=== PATIENT | female | born 1985 | race Caucasian/White ===

== ENCOUNTER 2018-01-19 05:10 | Inpatient (IN) | payer BC, SELFPAY ==
[~2018-01-19 05:10] MED LIST: Citric Acid/Sodium Citrate Solution 30 ML Cup PO ONE; Metoclopramide 10 MG/2 ML SDV IVPUSH ONE; Sodium Chloride 0.9% 10 ML Syringe FLUSH PRN; ceFAZolin 1 GM in Premix Bag 1 BAG IV ONE; ceFAZolin 2 GM in Premix Bag 1 BAG IV ONE
[2018-01-19] MEDS: Lactated Ringers 1,000 ML IV SCH ×2 (06:20→07:10)
[2018-01-19] MEDS ORDERED: Morphine PF 10 MG/10 ML SDV ONE (07:14)
[2018-01-19] MEDS ORDERED: Lactated Ringers 2,000 ML ONE (07:14)
[2018-01-19] MEDS ORDERED: Oxytocin 10 Units/1 ML SDV ONE (07:14)
[2018-01-19] MEDS ORDERED: Ondansetron 4 MG/2 ML SDV ONE (07:14)
[2018-01-19] MEDS ORDERED: Ketorolac 30 MG/ML SDV ONE (07:14)
[2018-01-19] MEDS ORDERED: ceFAZolin 1 GM Vial ONE ×2 (07:14)
--- NOTE | 2018-01-19 07:16 | PCM.OPNOTE ---
- General Post-Op/Procedure Note Date of Surgery/Procedure: 01/19/18 Operative Procedure(s): Repeat low transverse Findings: Minimal amount of scar tissue between the rectus and the fascia. Minimal scar tissue between the uterus and bladder. Baby boy in a footling breech presentation. Weight of 9 lbs 0 oz and APGARS of 8 & 9. Uterus exterorized. 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 Fallopian tubes and ovaries otherwise normal. Pre Op Diagnosis: 39 weeks gestation. 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 Placenta discarded. Fluid Replacement, Intraop: 2,900 Output, Urine Amount: 150 EBL in mLs: 800 Complications: None Condition: Good Free Text/Narrative:: The risks, benefits, indications, potential complications, and alternatives were explained to the patient and informed consent obtained. After induction of anesthesia, the patient was placed in a supine position and then draped and prepped in the usual sterile manner. A Pfannenstiel incision was made and carried down through the subcutaneous tissue to the fascia. Fascial incision was made and extended transversely. The fascia was from the underlying rectus tissue superiorly and inferiorly. The peritoneum was identified and entered. Peritoneal incision was extended longitudinally. The utero-vesical peritoneal reflection was incised transversely and the bladder flap was bluntly freed from the lower uterine segment. A low transverse uterine incision was made sharply with a scalpel and extended bluntly in a cephalocaudad direction. A baby boy was delivered from a footling breech presentation with APGARS as above. After the umbilical cord was clamped and cut cord blood was obtained for evaluation. The placenta was removed intact and appeared normal. The uterus was exteriorized and cleared of clots. The uterus was examined more thoroughly this time and thought to be a partial bicornuate. Tubes and ovaries appeared normal. The uterine incision was closed with running locked sutures of 0 Vicryl. Hemostasis was obtained with a second imbricating layer of 0 vicryl. The uterus was then placed back into the abdomen. The infracolic gutters were cleared of blood clots. The fascia was then reapproximated with running sutures of 0 Vicryl. The sucutaneous tissue was irrigated with sterile warm normal saline, hemostasis obtained with cautery. This layer was also closed with a running 0 vicryl. The skin was reapproximated with running Subcuticular 4-0 monocryl sutures. Instrument, sponge, and needle counts were correct prior the abdominal closure and at the conclusion of the case.
--- NOTE | 2018-01-19 07:21 | PCM.PREANE ---
Preanesthetic Assessment - Anesthesia/Transfusion/Family Hx Anesthesia History: Prior Anesthesia Without Reaction Family History of Anesthesia Reaction: No Transfusion History: No Prior Transfusion(s) - Review of Systems General: No Symptoms Pulmonary: No Symptoms Cardiovascular: No Symptoms Gastrointestinal: No Symptoms Neurological: No Symptoms Other: Reports: Easy Bruising, Thyroid Problems (parathyroid removed), Depression, Anxiety - Physical Assessment O2 Sat by Pulse Oximetry: 95 Respiratory Rate: 16 Vital Signs: Last Vital Signs Temp 98.0 F 01/19/18 06:00 Pulse 106 H 01/19/18 06:00 Resp 16 01/19/18 06:00 BP 119/71 01/19/18 06:00 Pulse Ox 95 01/19/18 06:00 Height: 5 ft 4 in Weight: 126.099 kg ASA Class: 2 Mental Status: Alert & Oriented x3 Airway Class: Mallampati = 1 Dentition: Reports: Normal Dentition Thyro-Mental Finger Breadths: 3 Mouth Opening Finger Breadths: 3 ROM/Head Extension: Full Lungs: Clear to Auscultation, Normal Respiratory Effort Cardiovascular: Regular Rate, Regular Rhythm - Lab Values: Laboratory Last Values WBC 12.49 K/mm3 (3.98-10.04) H 01/19/18 06:50 RBC 3.92 M/mm3 (3.98-5.22) L 01/19/18 06:50 Hgb 12.6 gm/L (11.2-15.7) 01/19/18 06:50 Hct 37.4 % (34.1-44.9) 01/19/18 06:50 MCV 95.4 fl (79.4-94.8) H 01/19/18 06:50 MCH 32.1 pg (25.6-32.2) 01/19/18 06:50 MCHC 33.7 g/dl (32.2-35.5) 01/19/18 06:50 RDW Std Deviation 44.1 fL (36.4-46.3) 01/19/18 06:50 Plt Count 162 K/mm3 (182-369) L 01/19/18 06:50 MPV 11.4 fl (9.4-12.3) 01/19/18 06:50 Neut % (Auto) 74.8 % (34.0-71.1) H 01/19/18 06:50 Lymph % (Auto) 15.0 % (19.3-51.7) L 01/19/18 06:50 Lawrence % (Auto) 8.6 % (4.7-12.5) 01/19/18 06:50 Eos % (Auto) 0.9 (0.7-5.8) 01/19/18 06:50 Baso % (Auto) 0.1 % (0.1-1.2) 01/19/18 06:50 Neut # (Auto) 9.36 K/mm3 (1.56-6.13) H 01/19/18 06:50 Lymph # (Auto) 1.87 K/mm3 (1.18-3.74) 01/19/18 06:50 Lawrence # (Auto) 1.07 K/mm3 (0.24-0.36) H 01/19/18 06:50 Eos # (Auto) 0.11 K/mm3 (0.04-0.36) 01/19/18 06:50 Baso # (Auto) 0.01 K/mm3 (0.01-0.08) 01/19/18 06:50 - Allergies Allergies/Adverse Reactions: Allergies Allergy/AdvReac Type Severity Reaction Status Date / Time amoxicillin Allergy Hives Verified 01/19/18 05:22 minocycline Allergy Hives Verified 01/19/18 05:22 - Blood Blood Available: No - Acknowledgements Anesthesia Type Planned: Spinal Pt an Appropriate Candidate for the Planned Anesthesia: Yes Alternatives and Risks of Anesthesia Discussed w Pt/Guardian: Yes Pt/Guardian Understands and Agrees with Anesthesia Plan: Yes PreAnesthesia Questionnaire - Past Health History Medical/Surgical History: Denies Medical/Surgical History Other Cardiovascular History: Increase blood pressure with previous Gastrointestinal History: Reports: GERD (with preg) 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: , Spontaneous : 3 (39 weeks) Para: 1 Other OB/BYN History: Abnormal pap but states results came back at cervical inflamation Psychiatric History: Reports: Depression Other Psychiatric History: Depression after her father 12 years ago Endocrine/Metabolic History: Reports: Hyperparathyroidism, Obesity/BMI 30+ Oncologic (Cancer) History: Reports: None - Past Surgical History HEENT Surgical History: Reports: Oral Surgery Other HEENT Surgeries/Procedures: [place] teeth Female Surgical History: Reports: Section Endocrine Surgical History: Reports: Parathyroidectomy Other Endocrine Surgeries/Procedures: Hyperparathyroidism fixed with parathyroidectomy - SUBSTANCE USE Smoking Status *Q: Never Smoker Tobacco Use Within Last Twelve Months: No Second Hand Smoke Exposure: No Days Per Week of Alcohol Use: 0 Recreational Drug Use History: No - HOME MEDS Home Medications: Home Meds Vit W-Ca,Fe,FA(<1 mg) [ Vitamins] 1 each PO DAILY 01/16/16 [ History] Ranitidine [Zantac] 150 mg PO DAILY 01/23/16 [History] Acetaminophen/oxyCODONE [Percocet 325-5 MG] 1 - 2 tab PO Q4H PRN #45 tablet 02/05 [Rx] - CURRENT (IN HOUSE) MEDS Current Meds: Current Medications Lactated Ringer's (Ringers, Lactated) 1,000 mls @ 125 mls/hr IV ASDIRECTED [facility] Last Admin: 01/19/18 07:10 Dose: 125 mls/hr Oxytocin/Lactated Ringer's (Pitocin In Lr 10 Units/1,000 Ml) 10 unit in 1,000 mls @ 100 mls/hr IV ASDIRECTED [facility] Sodium Chloride (Saline Flush) 10 ml FLUSH ASDIRECTED PRN PRN Reason: Keep Vein Open Discontinued Medications Cefazolin Sodium (Ancef) Confirm Administered Dose 2 gm .ROUTE .STK-MED ONE Stop: 01/19/18 07:15 Cefazolin Sodium (Ancef) Confirm Administered Dose 1 gm .ROUTE .STK-MED ONE Stop: 01/19/18 07:15 Citric Acid/Sodium Citrate (Bicitra Solution) 30 ml PO ONETIME ONE Stop: 01/19/18 05:01 Last Admin: 01/19/18 07:13 Dose: 30 ml Cefazolin Sodium/Dextrose 2 gm (/ Premix) 50 mls @ 100 mls/hr IV ONETIME ONE Stop: 01/19/18 05:29 Cefazolin Sodium/Dextrose 1 gm (/ Premix) 50 mls @ 100 mls/hr IV ONETIME ONE Stop: 01/19/18 05:29 Lactated Ringer's (Ringers, Lactated) Confirm Administered Dose 2,000 mls @ as directed .ROUTE .STK-MED ONE Stop: 01/19/18 07:15 Ketorolac Tromethamine (Toradol) Confirm Administered Dose 30 mg .ROUTE .STK- MED ONE Stop: 01/19/18 07:15 Metoclopramide HCl (Reglan) 10 mg IVPUSH ONETIME ONE Stop: 01/19/18 05:01 Last Admin: 01/19/18 07:14 Dose: 10 mg Morphine Sulfate (Duramorph Pf) Confirm Administered Dose 10 mg .ROUTE .STK-MED ONE Stop: 01/19/18 07:15 Ondansetron HCl (Zofran) Confirm Administered Dose 4 mg .ROUTE .STK-MED ONE Stop: 01/19/18 07:15 Oxytocin (Pitocin) Confirm Administered Dose 10 unit .ROUTE .STK-MED ONE Stop: 01/19/18 07:15
[2018-01-19] MEDS ORDERED: Bupivacaine 0.75%/D5W 2 ML Amp ONE (07:53)
[2018-01-19] MEDS ORDERED: Oxytocin/Lactated Ringers 10 UNIT/1,000 ML BAG IV SCH (08:00)
[2018-01-19] MEDS ORDERED: ePHEDrine 50 MG/ML SDV ONE (08:09)
[2018-01-19] MEDS ORDERED: fentaNYL 100 MCG/2 ML SDV IVPUSH PRN (08:16)
[2018-01-19] MEDS ORDERED: Meperidine PF 50 MG/ML Syringe IVPUSH PRN (08:16)
[2018-01-19] MEDS ORDERED: diphenhydrAMINE 50 MG/ML SDV IVPUSH PRN (08:16)
[2018-01-19] MEDS ORDERED: Ondansetron 4 MG/2 ML SDV IVPUSH PRN (08:16)
--- NOTE | 2018-01-19 08:56 | PCM.POSTAN ---
POST ANESTHESIA ASSESSMENT - MENTAL STATUS Mental Status: Alert, Oriented - VITAL SIGNS Pulse Rate: 110 SaO2: 99 Resp Rate: 12 Blood Pressure: 110/66 Temperature: 98.3 F - RESPIRATORY Respiratory Status: Respiratory Rate WNL, Airway Patent, O2 Saturation Stable, Supplemental Oxygen - CARDIOVASCULAR CV Status: Pulse Rate WNL, Blood Pressure Stable - GASTROINTESTINAL GI Status: No Symptoms - PAIN Pain Score: 0 - POST OP HYDRATION Hydration Status: Adequate & Stable
[2018-01-19] MEDS ORDERED: Ondansetron 4 MG/2 ML SDV IV PRN (10:55)
[2018-01-19] MEDS ORDERED: Naloxone 0.4 MG/ML SDV IVPUSH PRN (10:55)
[2018-01-19] MEDS ORDERED: Lanolin 100% Cream 7 GM Tube TOP PRN (10:55)
[2018-01-19] MEDS ORDERED: Dextrose 5%-Lactated Ringers 1,000 ML IV SCH (10:55)
[2018-01-19] MEDS: Ketorolac 30 MG/ML SDV IVPUSH SCH ×2 (15:03→20:21)
[2018-01-20] MEDS: Ketorolac 30 MG/ML SDV IVPUSH SCH (02:37)
[2018-01-20] MEDS: Acetaminophen/oxyCODONE 325-5 MG Tab PO PRN ×3 (04:05→22:27)
--- NOTE | 2018-01-20 07:13 | PCM.PNPP ---
- General Info Date of Service: 01/20/18 Admission Dx/Problem (Free Text): POD 1 s/p uncomplicated RCS. 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 Hasn't voided yet Pain controlled. Functional Status: Reports: Pain Controlled - Review of Systems General: Reports: No Symptoms HEENT: Reports: No Symptoms Pulmonary: Reports: No Symptoms Cardiovascular: Reports: No Symptoms Gastrointestinal: Reports: No Symptoms Genitourinary: Reports: No Symptoms Musculoskeletal: Reports: No Symptoms Skin: Reports: No Symptoms Neurological: Reports: No Symptoms Psychiatric: Reports: No Symptoms - General Info Date of Service: 01/20/18 - Patient Data Vital Signs - Most Recent: Last Vital Signs Temp 36.6 C 01/20/18 04:11 Pulse 106 H 01/20/18 04:11 Resp 16 01/20/18 06:45 BP 131/77 01/20/18 04:11 Pulse Ox 97 01/20/18 06:45 Weight - Most Recent: 126.099 kg I&O - Last 24 Hours: Intake & Output 01/19/18 01/20/18 01/20/18 22:59 06:59 14:59 Intake Total 360 Output Total 1075 1550 Balance -715 -1550 Lab Results - Last 24 Hours: Laboratory Results - last 24 hr 01/19/18 01/20/18 Range/Units 06:50 05:58 WBC 12.64 H (3.98-10.04) K/mm3 RBC 3.41 L (3.98-5.22) M/mm3 Hgb 10.8 L (11.2-15.7) gm/L Hct 33.3 L (34.1-44.9) % MCV 97.7 H (79.4-94.8) fl MCH 31.7 (25.6-32.2) pg MCHC 32.4 (32.2-35.5) g/dl RDW Std Deviation 45.4 (36.4-46.3) fL Plt Count 153 L (182-369) K/mm3 MPV 11.6 (9.4-12.3) fl Blood Type A POSITIVE Gel Antibody Screen Negative Med Orders - Current: Current Medications Diphenhydramine HCl (Benadryl) 25 mg IVPUSH Q6H PRN PRN Reason: pruritis Docusate Sodium (Colace) 100 mg PO Q12H PRN PRN Reason: Constipation Emollient Ointment (Lansinoh Hpa) 0 gm TOP ASDIRECTED PRN PRN Reason: Sore Nipples Fentanyl (Sublimaze) 50 mcg IVPUSH Q5M PRN PRN Reason: Pain Ibuprofen (Motrin) 600 mg PO Q6H PRN PRN Reason: mild pain or fever Meperidine HCl (Demerol) 12.5 mg IVPUSH ONETIME PRN PRN Reason: shivering Naloxone HCl (Narcan) 0.1 mg IVPUSH SEECOMMENT PRN PRN Reason: Respiratory Depression Ondansetron HCl (Zofran) 4 mg IVPUSH ONETIME PRN PRN Reason: Nausea/Vomiting Ondansetron HCl (Zofran) 4 mg IV Q8H PRN PRN Reason: Nausea/Vomiting Oxycodone/Acetaminophen (Percocet 325-5 Mg) 2 tab PO Q4H PRN PRN Reason: Pain (moderate 4-6) Last Admin: 01/20/18 04:05 Dose: 2 tab Discontinued Medications Bupivacaine HCl/Dextrose (Marcaine 0.75% Spinal) Confirm Administered Dose 2 ml .ROUTE .STK-MED ONE Stop: 01/19/18 07:54 Cefazolin Sodium (Ancef) Confirm Administered Dose 2 gm .ROUTE .STK-MED ONE Stop: 01/19/18 07:15 Cefazolin Sodium (Ancef) Confirm Administered Dose 1 gm .ROUTE .STK-MED ONE Stop: 01/19/18 07:15 Citric Acid/Sodium Citrate (Bicitra Solution) 30 ml PO ONETIME ONE Stop: 01/19/18 05:01 Last Admin: 01/19/18 07:13 Dose: 30 ml Ephedrine Sulfate (Ephedrine Sulfate) Confirm Administered Dose 50 mg .ROUTE .STK-MED ONE Stop: 01/19/18 08:10 Cefazolin Sodium/Dextrose 2 gm (/ Premix) 50 mls @ 100 mls/hr IV ONETIME ONE Stop: 01/19/18 05:29 Last Admin: 01/19/18 14:56 Dose: Not Given Cefazolin Sodium/Dextrose 1 gm (/ Premix) 50 mls @ 100 mls/hr IV ONETIME ONE Stop: 01/19/18 05:29 Last Admin: 01/19/18 14:55 Dose: Not Given Lactated Ringer's (Ringers, Lactated) 1,000 mls @ 125 mls/hr IV ASDIRECTED [facility] Last Admin: 01/19/18 07:10 Dose: 125 mls/hr Oxytocin/Lactated Ringer's (Pitocin In Lr 10 Units/1,000 Ml) 10 unit in 1,000 mls @ 100 mls/hr IV ASDIRECTED [facility] Lactated Ringer's (Ringers, Lactated) Confirm Administered Dose 2,000 mls @ as directed .ROUTE .STK-MED ONE Stop: 01/19/18 07:15 Dextrose/Lactated Ringer's (Dextrose 5%-Lactated Ringers) 1,000 mls @ 125 mls/ hr IV ASDIRECTED [facility] Stop: 01/19/18 18:54 Last Admin: 01/19/18 13:27 Dose: 125 mls/hr Ketorolac Tromethamine (Toradol) Confirm Administered Dose 30 mg .ROUTE .STK- MED ONE Stop: 01/19/18 07:15 Ketorolac Tromethamine (Toradol) 30 mg IVPUSH Q6H [facility] Stop: 01/20/18 02:31 Last Admin: 01/20/18 02:37 Dose: 30 mg Metoclopramide HCl (Reglan) 10 mg IVPUSH ONETIME ONE Stop: 01/19/18 05:01 Last Admin: 01/19/18 07:14 Dose: 10 mg Morphine Sulfate (Duramorph Pf) Confirm Administered Dose 10 mg .ROUTE .STK-MED ONE Stop: 01/19/18 07:15 Ondansetron HCl (Zofran) Confirm Administered Dose 4 mg .ROUTE .STK-MED ONE Stop: 01/19/18 07:15 Oxytocin (Pitocin) Confirm Administered Dose 10 unit .ROUTE .STK-MED ONE Stop: 01/19/18 07:15 Sodium Chloride (Saline Flush) 10 ml FLUSH ASDIRECTED PRN PRN Reason: Keep Vein Open - Interaction Infant Disposition, : at Bedside Support Person: - Recovery Exam Fundal Tone: Firm Fundal Level: At Umbilicus Fundal Placement: Midline Lochia Amount: Scant, Small Lochia Color: Rubra/Red Perineum Description: Intact, Minimal Bruising/Swelling Episiotomy/Laceration: None Bladder Status: Indwelling Catheter in Place - Exam General: Alert, Oriented HEENT: Pupils Equal Neck: Supple Lungs: Clear to Auscultation, Normal Respiratory Effort Cardiovascular: Regular Rate, Regular Rhythm GI/Abdominal Exam: Normal Bowel Sounds, Soft, Non-Tender, No Organomegaly, No Distention, No Abnormal Bruit, No Mass, Pelvis Stable Extremities: Normal Inspection, Normal Range of Motion, Non-Tender, No Pedal Edema, Normal Capillary Refill Skin: Warm, Dry, Intact Wound/Incisions: Healing Well Neurological: No New Focal Deficit Psy/Mental Status: Alert, Normal Affect, Normal Mood - Problem List Review Problem List Initiated/Reviewed/Updated: Yes - Assessment Assessment:: POD1 Doing well Excellent UOP - Plan Plan:: Continue routine postop care.
--- NOTE | 2018-01-20 10:34 | PCM48HPAN ---
Post Anesthesia Note - EVALUATION WITHIN 48HRS OF ANESTHETIC Vital Signs in Normal Range: Yes Patient Participated in Evaluation: Yes Respiratory Function Stable: Yes Airway Patent: Yes Cardiovascular Function Stable: Yes Hydration Status Stable: Yes Pain Control Satisfactory: Yes Nausea and Vomiting Control Satisfactory: Yes Mental Status Recovered: Yes Pulse Rate: 106 Resp Rate: 16 Temperature: 36.6 C Blood Pressure: 131/77 - COMMENTS/OBSERVATIONS Free Text/Narrative:: no anesthesia complications noted
[2018-01-20] MEDS: Ibuprofen 600 MG Tab PO PRN (19:19)
[2018-01-20] MEDS: Docusate Sodium 100 MG Cap PO PRN (19:22)
[2018-01-21] MEDS ORDERED: Measles, Mumps & Rubella Vaccine 0.5 ML SDV SUBCUT ONE (03:33)
[2018-01-21] MEDS: Ibuprofen 600 MG Tab PO PRN (04:01)
[2018-01-21] MEDS: Docusate Sodium 100 MG Cap PO PRN (08:11)
[2018-01-21] MEDS: Acetaminophen/oxyCODONE 325-5 MG Tab PO PRN (08:11)
--- NOTE | 2018-01-21 09:54 | PCM.DCSUM1 ---
Discharge Summary - Hospital Course Brief History: Admitted for RCS. Unremarkable course - Discharge Data Discharge Date: 01/21/18 Discharge Disposition: Home, Self-Care 01 Condition: Good - Patient Summary/Data Operative Procedure(s) Performed: Repeat low transverse - Patient Instructions Diet: Usual Diet as Tolerated Activity: No Strenuous Activities Driving: May Drive Today Showering/Bathing: May Shower Wound/Incision Care: Keep Operative Site/Wound Site Clean and Dry Notify Provider of: Fever, Increased Pain, Swelling and Redness, Drainage, Nausea and/or Vomiting - Discharge Plan Home Medications: Home Meds Vit W-Ca,Fe,FA(<1 mg) [ Vitamins] 1 each PO DAILY 01/16/16 [ History] Ranitidine [Zantac] 150 mg PO DAILY 01/23/16 [History] Acetaminophen/oxyCODONE [Percocet 325-5 MG] 1 - 2 tab PO Q4H PRN #45 tablet 02/05 [Rx] Referrals: Nina Mcdonough MD [Primary Care Provider] - (2-3 weeks) - Discharge Summary/Plan Comment DC Time >30 min.: No - General Info Date of Service: 01/21/18 Functional Status: Reports: Pain Controlled - Review of Systems General: Reports: No Symptoms HEENT: Reports: No Symptoms Pulmonary: Reports: No Symptoms Cardiovascular: Reports: No Symptoms Gastrointestinal: Reports: No Symptoms Genitourinary: Reports: No Symptoms Musculoskeletal: Reports: No Symptoms Skin: Reports: No Symptoms Neurological: Reports: No Symptoms Psychiatric: Reports: No Symptoms - Patient Data Vitals - Most Recent: Last Vital Signs Temp 36.5 C 01/21/18 04:15 Pulse 102 H 01/21/18 04:15 Resp 18 01/21/18 04:15 BP 130/60 01/21/18 04:15 Pulse Ox 96 01/21/18 04:15 Weight - Most Recent: 126.099 kg Med Orders - Current: Current Medications Diphenhydramine HCl (Benadryl) 25 mg IVPUSH Q6H PRN PRN Reason: pruritis Docusate Sodium (Colace) 100 mg PO Q12H PRN PRN Reason: Constipation Last Admin: 01/21/18 08:11 Dose: 100 mg Emollient Ointment (Lansinoh Hpa) 0 gm TOP ASDIRECTED PRN PRN Reason: Sore Nipples Last Admin: 01/20/18 22:25 Dose: 1 applic Fentanyl (Sublimaze) 50 mcg IVPUSH Q5M PRN PRN Reason: Pain Ibuprofen (Motrin) 600 mg PO Q6H PRN PRN Reason: mild pain or fever Last Admin: 01/21/18 04:01 Dose: 600 mg Meperidine HCl (Demerol) 12.5 mg IVPUSH ONETIME PRN PRN Reason: shivering Naloxone HCl (Narcan) 0.1 mg IVPUSH SEECOMMENT PRN PRN Reason: Respiratory Depression Ondansetron HCl (Zofran) 4 mg IVPUSH ONETIME PRN PRN Reason: Nausea/Vomiting Ondansetron HCl (Zofran) 4 mg IV Q8H PRN PRN Reason: Nausea/Vomiting Oxycodone/Acetaminophen (Percocet 325-5 Mg) 2 tab PO Q4H PRN PRN Reason: Pain (moderate 4-6) Last Admin: 01/21/18 08:11 Dose: 2 tab Discontinued Medications Bupivacaine HCl/Dextrose (Marcaine 0.75% Spinal) Confirm Administered Dose 2 ml .ROUTE .STK-MED ONE Stop: 01/19/18 07:54 Cefazolin Sodium (Ancef) Confirm Administered Dose 2 gm .ROUTE .STK-MED ONE Stop: 01/19/18 07:15 Cefazolin Sodium (Ancef) Confirm Administered Dose 1 gm .ROUTE .STK-MED ONE Stop: 01/19/18 07:15 Citric Acid/Sodium Citrate (Bicitra Solution) 30 ml PO ONETIME ONE Stop: 01/19/18 05:01 Last Admin: 01/19/18 07:13 Dose: 30 ml Ephedrine Sulfate (Ephedrine Sulfate) Confirm Administered Dose 50 mg .ROUTE .STK-MED ONE Stop: 01/19/18 08:10 Cefazolin Sodium/Dextrose 2 gm (/ Premix) 50 mls @ 100 mls/hr IV ONETIME ONE Stop: 01/19/18 05:29 Last Admin: 01/19/18 14:56 Dose: Not Given Cefazolin Sodium/Dextrose 1 gm (/ Premix) 50 mls @ 100 mls/hr IV ONETIME ONE Stop: 01/19/18 05:29 Last Admin: 01/19/18 14:55 Dose: Not Given Lactated Ringer's (Ringers, Lactated) 1,000 mls @ 125 mls/hr IV ASDIRECTED [facility] Last Admin: 01/19/18 07:10 Dose: 125 mls/hr Oxytocin/Lactated Ringer's (Pitocin In Lr 10 Units/1,000 Ml) 10 unit in 1,000 mls @ 100 mls/hr IV ASDIRECTED [facility] Lactated Ringer's (Ringers, Lactated) Confirm Administered Dose 2,000 mls @ as directed .ROUTE .STK-MED ONE Stop: 01/19/18 07:15 Dextrose/Lactated Ringer's (Dextrose 5%-Lactated Ringers) 1,000 mls @ 125 mls/ hr IV ASDIRECTED [facility] Stop: 01/19/18 18:54 Last Admin: 01/19/18 13:27 Dose: 125 mls/hr Ketorolac Tromethamine (Toradol) Confirm Administered Dose 30 mg .ROUTE .STK- MED ONE Stop: 01/19/18 07:15 Ketorolac Tromethamine (Toradol) 30 mg IVPUSH Q6H [facility] Stop: 01/20/18 02:31 Last Admin: 01/20/18 02:37 Dose: 30 mg Measles/Mumps/Rubella Vaccine Live (M-M-R Ii Vaccine) 0.5 ml SUBCUT .ONCE ONE Stop: 01/21/18 03:34 Last Admin: 01/21/18 04:02 Dose: 0.5 ml Metoclopramide HCl (Reglan) 10 mg IVPUSH ONETIME ONE Stop: 01/19/18 05:01 Last Admin: 01/19/18 07:14 Dose: 10 mg Morphine Sulfate (Duramorph Pf) Confirm Administered Dose 10 mg .ROUTE .STK-MED ONE Stop: 01/19/18 07:15 Ondansetron HCl (Zofran) Confirm Administered Dose 4 mg .ROUTE .STK-MED ONE Stop: 01/19/18 07:15 Oxytocin (Pitocin) Confirm Administered Dose 10 unit .ROUTE .STK-MED ONE Stop: 01/19/18 07:15 Sodium Chloride (Saline Flush) 10 ml FLUSH ASDIRECTED PRN PRN Reason: Keep Vein Open - Exam General: Reports: Alert, Oriented HEENT: Reports: Pupils Equal, Pupils Reactive, EOMI, Mucous Membr. Moist/[place] Neck: Reports: Supple Lungs: Reports: Clear to Auscultation, Normal Respiratory Effort Cardiovascular: Reports: Regular Rate, Regular Rhythm GI/Abdominal Exam: Normal Bowel Sounds, Soft, Non-Tender, No Organomegaly, No Distention, No Abnormal Bruit, No Mass, Pelvis Stable (Female) Exam: Normal External Exam Rectal (Female) Exam: Normal Exam Back Exam: Reports: Normal Inspection, Full Range of Motion Extremities: Normal Inspection, Normal Range of Motion, Non-Tender, No Pedal Edema, Normal Capillary Refill Skin: Reports: Warm, Dry, Intact Wound/Incisions: Reports: Healing Well Neurological: Reports: No New Focal Deficit Psy/Mental Status: Reports: Alert, Normal Affect, Normal Mood
[2018-01-21 10:32] VITALS: BP 120/67
== END 2018-01-21 11:20 | disposition home or self-care (01) | DRG 540 ==
LOC: JD.OB 05:10
PROVIDERS: ADMIT Obstetrics & Gynecology; ATTEND Obstetrics & Gynecology
PROC: 10D00Z1 Extraction of Products of Conception, Low, Open Approach (ICD-10-PCS; principal; 2018-01-19)
PROC: 3E0234Z Introduction of Serum, Toxoid and Vaccine into Muscle, Percutaneous Approach (ICD-10-PCS; 2018-01-21)
DX: O34.211 Maternal care for low transverse scar from previous cesarean delivery (principal); O32.8XX0 Maternal care for other malpresentation of fetus, not applicable or unspecified; N85.8 Other specified noninflammatory disorders of uterus; Z3A.39 39 weeks gestation of pregnancy; Z37.0 Single live birth; Z23 Encounter for immunization; Z88.1 Allergy status to other antibiotic agents
CPT/HCPCS: 01961; 36415; 51700; 59025; 85025; 85027; 86850; 86900; 86901; 90471; 90707; 94762; A9270-GY; J0690; J1885; J2270; J2405; J2590; J2765; J7042; J7120

== ENCOUNTER 2021-03-11 21:48 | Emergency (ER) | payer BC ==
[2021-03-11 22:04] VITALS: BP 137/92; PULSE 105
--- NOTE | 2021-03-12 00:09 | EDM.PDOC ---
ED HPI GENERAL MEDICAL PROBLEM - General Chief Complaint: Gastrointestinal Problem Stated Complaint: DISORIENTED/NAUSEATED/DIZZY Time Seen by Provider: 03/11/21 22:11 Source of Information: Reports: Patient History Limitations: Reports: No Limitations - History of Present Illness INITIAL COMMENTS - FREE TEXT/NARRATIVE: The patient presents for dizziness, unable to focus and nausea. This has been going on for a few days but tonight was worse. She is being treated for a sinus infection. She is on omicef and clindamycin. She said tonight it started again when she took the antibiotics. She has no headache, cough, fever, chills, abdominal pain, or vomiting. Onset: Gradual Duration: Day(s): Improves with: Reports: None Worsens with: Reports: None Associated Symptoms: Reports: Nausea/Vomiting. Denies: Chest Pain, Cough, Fever/Chills, Headaches, Shortness of Breath Face/Facial Pain Score (Numeric/FACES): 1 - Related Data Allergies Allergy/AdvReac Type Severity Reaction Status Date / Time amoxicillin Allergy Severe Hives Verified 03/11/21 22:04 minocycline Allergy Severe Hives Verified 03/11/21 22:04 Home Meds: Home Meds Cefdinir [Omnicef] 300 mg PO BID 03/11/21 [History] Clindamycin HCl 3 cap PO TID 03/11/21 [History] ceFIXime [Suprax] 400 mg PO DAILY 03/11/21 [History] Past Medical History - Past Health History Medical/Surgical History: Denies Medical/Surgical History Other Cardiovascular History: Increase blood pressure with previous Gastrointestinal History: Reports: GERD TIPPLE TENDER History: Reports: , Spontaneous Other TIPPLE TENDER History: Abnormal pap but states results came back at cervical inflamation Psychiatric History: Reports: Depression Other Psychiatric History: Depression after her father 12 years ago Endocrine/Metabolic History: Reports: Hyperparathyroidism, Obesity/BMI 30+ Oncologic (Cancer) History: Reports: None - Infectious Disease History Infectious Disease History: Reports: Measles - Past Surgical History HEENT Surgical History: Reports: Oral Surgery Other HEENT Surgeries/Procedures: [place] teeth Female Surgical History: Reports: Section Endocrine Surgical History: Reports: Parathyroidectomy Other Endocrine Surgeries/Procedures: Hyperparathyroidism fixed with parathyroidectomy Social & Family History - Family History Family Medical History: No Pertinent Family History Cardiac: Reports: Other (See Below) Other Cardiac Family History: Heart disease, heart attack Oncologic: Reports: Colon - Tobacco Use Tobacco Use Status *Q: Never Tobacco User Second Hand Smoke Exposure: No - Caffeine Use Caffeine Use: Reports: Coffee Other Caffeine Use: Occasional - Recreational Drug Use Recreational Drug Use: No ED ROS GENERAL - Review of Systems Review Of Systems: See Below Constitutional: Reports: No Symptoms HEENT: Reports: No Symptoms Respiratory: Reports: No Symptoms Cardiovascular: Reports: No Symptoms Endocrine: Reports: No Symptoms GI/Abdominal: Reports: Nausea. Denies: Abdominal Pain, Vomiting : Reports: No Symptoms Musculoskeletal: Reports: No Symptoms ED EXAM, GI/ABD - Physical Exam Exam: See Below Exam Limited By: No Limitations General Appearance: Alert, No Apparent Distress Ears: Normal External Exam Nose: Normal Inspection Head: Atraumatic, Normocephalic Neck: Normal Inspection Respiratory/Chest: No Respiratory Distress, Lungs Clear, Normal Breath Sounds Cardiovascular: Regular Rate, Rhythm, No Edema, No Murmur GI/Abdominal Exam: Soft, Non-Tender, No Organomegaly, No Mass Back Exam: Normal Inspection Extremities: Normal Inspection #1 Interpretation EKG Date: 03/12/21 Time: 22:44 Rhythm: Other (sinus tachycardia) Rate (Beats/Min): 101 [place]: Normal P-Wave: Present QRS: Normal ST-T: Normal QT: Normal Course - Vital Signs Last Recorded V/S: Last Vital Signs Temp 98.4 F 03/11/21 21:59 Pulse 105 H 03/11/21 21:59 Resp 20 03/11/21 21:59 BP 137/92 H 03/11/21 21:59 Pulse Ox 97 03/11/21 21:59 - Orders/Labs/Meds Orders: Active Orders 24 hr Category Date Time Status Cardiac Monitoring [RC] . DIRECTED Care 03/11/21 22:29 Active EKG Documentation Completion [RC] STAT Care 03/11/21 22:30 Active Head wo Cont [CT] Stat Exams 03/11/21 22:30 Taken Labs: Laboratory Tests 03/11/21 03/11/21 Range/Units 22:45 22:45 WBC 4.74 (3.98-10.04) K/mm3 RBC 4.66 (3.98-5.22) M/mm3 Hgb 14.0 D (11.2-15.7) gm/dl Hct 43.3 (34.1-44.9) % MCV 92.9 D (79.4-94.8) fl MCH 30.0 (25.6-32.2) pg MCHC 32.3 (32.2-35.5) g/dl RDW Std Deviation 44.5 (36.4-46.3) fL Plt Count 237 D (182-369) K/mm3 MPV 9.9 (9.4-12.3) fl Neut % (Auto) 50.2 (34.0-71.1) % Lymph % (Auto) 26.4 (19.3-51.7) % [place] % (Auto) 19.6 H (4.7-12.5) % Eos % (Auto) 3.0 (0.7-5.8) Baso % (Auto) 0.6 (0.1-1.2) % Neut # (Auto) 2.38 (1.56-6.13) K/mm3 Lymph # (Auto) 1.25 (1.18-3.74) K/mm3 [place] # (Auto) 0.93 H (0.24-0.36) K/mm3 Eos # (Auto) 0.14 (0.04-0.36) K/mm3 Baso # (Auto) 0.03 (0.01-0.08) K/mm3 Manual Slide Review Abnormal smear Sodium 141 (136-145) mEq/L Potassium 4.2 (3.5-5.1) mEq/L Chloride 106 (98-107) mEq/L Carbon Dioxide 26 (21-32) mEq/L Anion Gap 13.2 (5-15) BUN 18 (7-18) mg/dL Creatinine 0.9 (0.55-1.02) mg/dL Est Cr Clr Drug Dosing 73.75 mL/min Estimated GFR (MDRD) > 60 (>60) mL/min BUN/Creatinine Ratio 20.0 H (14-18) Glucose 100 H (70-99) mg/dL Calcium 8.8 (8.5-10.1) mg/dL Magnesium 1.7 L (1.8-2.4) mg/dL Total Bilirubin 0.2 (0.2-1.0) mg/dL AST 18 (15-37) U/L ALT 30 (14-59) U/L Alkaline Phosphatase 74 (46-116) U/L Troponin I < 0.017 (0.00-0.056) ng/mL C-Reactive Protein 0.8 (<1.0) mg/dL Total Protein 7.4 (6.4-8.2) g/dl Albumin 3.5 (3.4-5.0) g/dl Globulin 3.9 gm/dL Albumin/Globulin Ratio 0.9 L (1-2) - Re-Assessments/Exams Free Text/Narrative Re-Assessment/Exam: 03/12/21 00:[address] of her head, EKG and labs. Her EKG shows a NSR with no acute changes. The CT of her head shows nothing acute. Her CBC and CMP look good. Her troponin is negative. I will have her stop taking the antibiotics. It appears she did clear the infection. Departure - Departure Time of Disposition: 00:15 Disposition: Home, Self-Care 01 Condition: Good Clinical Impression: Dizziness - Discharge Information *PRESCRIPTION DRUG MONITORING PROGRAM REVIEWED*: Not Applicable *COPY OF PRESCRIPTION DRUG MONITORING REPORT IN PATIENT WILFRED: Not Applicable Referrals: June Holt MD [Primary Care Provider] - 1 Week Forms: ED Department Discharge Additional Instructions: Stop taking the antibiotics. Drink plenty of fluids. Follow up with your doctor within a week. Please return if you are worse. Sepsis Event Note (ED) - Evaluation Sepsis Screening Result: No Definite Risk - Focused Exam Vital Signs: Vital Signs Temp Pulse Resp BP Pulse Ox 03/11/21 21:59 98.4 F 105 H 20 137/92 H 97 - My Orders Last 24 Hours: My Active Orders 03/11/21 22:29 Cardiac Monitoring [RC] . DIRECTED 03/11/21 22:30 EKG Documentation Completion [RC] STAT Head wo Cont [CT] Stat - Assessment/Plan Last 24 Hours: My Active Orders 03/11/21 22:29 Cardiac Monitoring [RC] . DIRECTED 03/11/21 22:30 EKG Documentation Completion [RC] STAT Head wo Cont [CT] Stat
--- NOTE | 2021-03-12 09:06 | CT ---
Head CT Technique: Multiple axial sections through the brain were obtained. Intravenous contrast was not utilized. Reconstructed coronal and sagittal images were obtained. Comparison: No prior intracranial imaging is available. Findings: Ventricles along with basal cisterns and sulci over the convexities appear within normal limits for the patient's age. No abnormal parenchymal densities are seen. No evidence of intracranial hemorrhage. No midline shift or mass-effect is appreciated. Bone window settings were reviewed. Visualized paranasal sinuses and mastoid sinuses show nothing acute. No acute calvarial abnormality is appreciated. Impression: 1. Nothing acute is identified on noncontrast head CT exam. Diagnostic code #1 I agree with preliminary report from [facility], finalized on 03/12/21, 12:34 AM CDT, code 1
== END 2021-03-12 00:21 | disposition home or self-care (01) ==
LOC: JD.ED 21:48
DX: R42 Dizziness and giddiness (principal); E66.9 Obesity, unspecified; Z68.30 Body mass index [BMI] 30.0-30.9, adult; Z88.0 Allergy status to penicillin; Z88.1 Allergy status to other antibiotic agents
CPT/HCPCS: 36415; 70450; 70450-26; 80053; 83735; 84484; 85025; 86140; 93005; 93010; 99283; 99284-25

== ENCOUNTER 2023-10-02 10:31 | Day surgery (SDC) | payer BC ==
[2023-10-02] MEDS ORDERED: Sodium Chloride 0.9% 10 ML Syringe FLUSH PRN (11:07)
[2023-10-02] MEDS ORDERED: Lactated Ringers 1,000 ML IV SCH (11:15)
[2023-10-02] MEDS ORDERED: Ondansetron 4 MG/2 ML SDV IVPUSH PRN (11:16)
[2023-10-02] MEDS ORDERED: Midazolam 1 MG/ML 2 ML SDV ONE (11:20)
[2023-10-02] MEDS ORDERED: Propofol 200 MG/20 ML SDV ONE (11:21)
[2023-10-02] MEDS ORDERED: Lidocaine 1% 4 ML ONE (11:21)
[2023-10-02] MEDS ORDERED: Ketamine 200 MG/20 ML MDV ONE (11:21)
[2023-10-02 13:38] VITALS: BP 132/82; PULSE 96
[2023-10-02] MEDS ORDERED: Sodium Chloride 0.9% 10 ML Syringe FLUSH SCH (21:00)
== END 2023-10-02 13:32 | disposition home or self-care (01) ==
LOC: JD.SDS 10:31
PROVIDERS: ATTEND Surgery
DX: K29.50 Unspecified chronic gastritis without bleeding (principal); K44.9 Diaphragmatic hernia without obstruction or gangrene; K29.80 Duodenitis without bleeding; K64.8 Other hemorrhoids; K21.9 Gastro-esophageal reflux disease without esophagitis; Q43.8 Other specified congenital malformations of intestine; K80.20 Calculus of gallbladder without cholecystitis without obstruction; E66.01 Morbid (severe) obesity due to excess calories; Z68.42 Body mass index [BMI] 45.0-49.9, adult; F32.A Depression, unspecified; E89.2 Postprocedural hypoparathyroidism; Z79.899 Other long term (current) drug therapy; Z88.0 Allergy status to penicillin
CPT/HCPCS: 43239; 45378; 81025; J2250; J2704; J7120; 00813; J3490